=== PATIENT | female | born 1970 | race Caucasian/White ===

== ENCOUNTER 2024-03-22 08:30 | Emergency (ER) | payer OTHER, SELFPAY ==
[2024-03-22 08:53] VITALS: BP 139/79; PULSE 90; RESP 20; TEMP 36.8; O2SAT 98; BMI 26.5
[2024-03-22 09:09] LABS: UTC Strep Screen (Rapid) Negative (Negative)
--- NOTE | 2024-03-22 09:19 | ED_ITS ---
Discharge Plan Disposition Patient Disposition: Home, Self-Care Condition: Good Prescriptions Prescriptions: New fluticasone propionate [Flonase Allergy Relief] 50 mcg/actuation spray,suspension 2 spray intranasal DAILY Qty: 16 0RF Rx Instructions: administer into each nostril daily azithromycin [Zithromax Z-Perfecto] 250 mg tablet See Rx Instructions .ROUTE .COMPLEX 5 Days Qty: 6 0RF Rx Instructions: For 250 mg dose pack: take 500 mg today (day 1), then 250 mg for 4 days (days 2-5) methylprednisolone [Medrol (Perfecto)] 4 mg tablets,dose pack See Rx Instructions .Route .COMPLEX 6 Days Qty: 21 0RF Rx Instructions: taper pack; No Action dextroamphetamine-amphetamine 20 mg capsule,extended release 24hr 20 mg PO DAILY Patient Comments: TAKE ONE CAPSULE BY MOUTH EVERY MORNING escitalopram oxalate [Lexapro] 20 mg Tablet 20 mg PO DAILY Referrals Follow up/Referrals: Braxton Fam MD [Primary Care Provider] - See instructions Activity Restrictions/Add. Instructions Additional Instructions/Restrictions: *Monitor Temp, Over the counter Motrin or Tylenol as directed/as needed Tylenol every 4 hours and Motrin every 6 hours (as long as your family doctor has told you that you can take it) for fever or pain. and straight to ER if unable to lower temp less than 101.0 after medication given *Warm salt water gargles may help to soothe the throat *Throat Lozenges? *Warm fluids like tea with honey may help to soothe the throat? *Sleep elevated *Humidifier/Vaporizer *Flonase 2 sprays in each nostril daily but be aware that it may take 2-3 days before you notice improvement Take medication as prescribed Follow up IMMEDIATELY for new or worsening symptoms or no Noticeable improvement over the next 48-72 hours. 911 for difficulty breathing or swallowing Clinical Impressions Clinical Impression: Sinusitis Instructions Patient Instructions: DI for Sinusitis, Sinusitis Print Language Print Language: Mosotho Discharge ED Provider: Gely Stein [facility] [place] HPI General Stated complaint: sore throat Mode of Arrival: Ambulatory Source of Information: Patient Time Seen by Provider: 03/22/24 09:20 Description of Symptoms (Recalled from Triage Doc. by RN): SORE THROAT, NECK PAIN,HEADACHE X 3 WEEKS HEENT Symptoms (Recalled from RN notes): Yes (SORE THROAT, HEADACHE) Resp Symptoms (Recalled from RN notes): No Skin Symptoms (Recalled from RN notes): No MS Symptoms (Recalled from RN notes): No Functional Status (Recalled from RN notes): WNL History of Present Illness Provider Complaint: Patient states that for the last 3 weeks she has been having sinus congestion and pressure at times, headache on and off, sore throat, swollen lymph nodes and soreness in the sides of her neck States that someone looked at her throat and thought they may have seen blisters so she came in Related Data Home Medications ?Medication ?Instructions ?Recorded ?Confirmed dextroamphetamine-amphetamine ER 20 mg PO DAILY 03/22/24 03/22/24 20 mg 24hr capsule,extend release escitalopram oxalate 20 mg tablet 20 mg PO DAILY 03/22/24 03/22/24 (Lexapro) Previous Rx's ?Medication ?Instructions ?Recorded azithromycin 250 mg tablet See Rx Instructions PO .COMPLEX 5 03/22/24 (Zithromax Z-Perfecto) days #6 tabs fluticasone propionate 50 2 spray intranasal DAILY #16 grams 03/22/24 mcg/actuation nasal spray,suspension (Flonase Allergy Relief) methylprednisolone 4 mg tablets in See Rx Instructions .Route 03/22/24 a dose pack (Medrol (Perfecto)) .COMPLEX 6 days #21 tabs Allergies Allergy/AdvReac Type Severity Reaction Status Date / Time acetaminophen [From Percocet] Allergy Hives Verified 10/11/23 12:06 oxycodone [From Percocet] Allergy Hives Verified 10/11/23 12:06 Worker's Comp Is this a Worker's Comp case?: No [facility] Disclaimer: The information contained in this section may have been updated after the patient was seen, as this information can be updated by other users. Medical History (Updated 03/22/24 @ 09:28 by Gely Stein APRN) Depression Anxiety Surgical History (Updated 03/22/24 @ 08:56 by Rochelle Victor RN) Hx of cholecystectomy Social History Smoking Status: Smoker, status unknown alcohol intake: never current occupational status: employed Travel in the last 8 weeks: None ROS Obtained: Yes All systems reviewed & no additional complaints except as documented and Yes Systems reviewed as appropriate & no additional complaints except as documented Constitutional Constitutional: Reports system reviewed and no additional complaints, except as documented, Reports as per HPI and Reports headache(s) ENT Ears, Nose, Mouth, and Throat: Reports system reviewed and no additional complaints, except as documented, Reports as per HPI, Reports otalgia, Reports headache(s), Reports nasal congestion, Reports sinus pressure and Reports sore throat Cardiovascular Cardiovascular: Reports system reviewed and no additional complaints, except as documented and Reports as per HPI Respiratory Respiratory: Reports system reviewed and no additional complaints, except as documented and Reports as per HPI Gastrointestinal Gastrointestingal: Reports system reviewed and no additional complaints, except as documented and as per HPI Neurologic Neurologic: Reports headache(s) Physical Exam General General appearance: alert and in no apparent distress ENT ENT exam: Present mucous membranes moist Expanded ENT Exam TM/Canal exam: Bilateral TM: bulging Nose exam: Present sinus tenderness (tenderness with palpation maxillary sinuses) Throat exam: Present tonsillar erythema; Absent tonsillomegaly or tonsillar exudate Respiratory Respiratory exam: Present normal lung sounds bilaterally; Absent respiratory distress or wheezes Cardiovascular Cardiovascular exam: Present regular rate, normal rhythm and normal heart sounds Neurological Exam Neurological exam: Present alert, oriented X3 and normal gait Medical Decision Making Medical Records Screening: Per USPSTF and CDC recommendations, given the prevalence of disease in our region, it is our hospital?s policy to screen for HIV and viral Hepatitis for all patients aged 18 and over and those with ongoing risk factors. Vladimir Inquiry Pt receiving controlled substance: No Vladimir was queried for this patient: No Vital Signs: 03/22/24 08:53 Temperature 98.2 F Temperature Source Oral Pulse Rate [Left Brachial] 90 Respiratory Rate 20 Blood Pressure [Left Arm] 139/79 Blood Pressure Mean [Left Arm] 99 02 Sat by Pulse Oximetry 98 Lab Data Lab results reviewed: Yes I reviewed the patient's lab results. Lab Results 03/22/24 08:54: Strep Scn Rapid Clinic Negative Orders (Tests/Meds): ORDERS Category Date Time Status Strep Screen Confirmation Stat Micro 03/22/24 08:54 Received
[2024-03-22 10:06] VITALS: BP 139/79; PULSE 90; RESP 20; TEMP 36.8
== END 2024-03-22 10:06 | disposition home or self-care (01) ==
PROVIDERS: Emergency Provider Nurse Practitioner; PCP Family Medicine
DX: J01.90 Acute sinusitis, unspecified (principal); R51.9 Headache, unspecified; R07.0 Pain in throat
CPT/HCPCS: 87880; 99204; 99212; G0463

== ENCOUNTER 2024-05-29 14:31 | Outpatient (CLI) | payer OTHER, SELFPAY ==
--- NOTE | 2024-05-29 14:32 | US_ITS ---
PROCEDURE: US TRANSVAGINAL CLINICAL INDICATION: postmenopausal bleeding COMPARISON: No exams were available for comparison FINDINGS: Transvaginal sonographic images of the pelvis were obtained. UTERUS: 7.1cm x 4.6 cmx 3.6 cm anteverted with a combined endometrial thickness of 5.4mm. The myometrium has a heterogenous appearance. There is a heterogenous area within the cervix measuring 1.5 cm x 0.8 cm. LEFT OVARY: 2.1cmx1.0cmx1.0cm with a volume of 1.1ml. RIGHT OVARY: 2.5 cmx 1.4cmx1.3cm with a volume of 2.5ml. Both ovaries are seen and appear normal. Doppler flow to both ovaries are seen. There is no fluid in the cul-de-sac. IMPRESSION: 1. Anteverted uterus normal in shape and size. The endometrium measures 5.4 mm. Suggest endometrial sampling given the postmenopausal bleeding. 2. Within the cervix there is a hyperechoic area that measures 1.5 cm in size. 3. The myometrium of the uterus appears heterogenous. 4. Both ovaries are seen and appear atrophic. 5. No fluid in the cul-de-sac Dictated by: Thanh Bartholomew MD 05/29/2024 16:08 Thanh Bartholomew MD in [place] 05/29/2024 16:08
== END 2024-05-29 23:59 | disposition home or self-care (01) ==
LOC: RAD 14:32
PROVIDERS: PCP Family Medicine; Visit Provider Obstetrics & Gynecology
DX: N95.0 Postmenopausal bleeding (principal)
CPT/HCPCS: 76830

== ENCOUNTER 2024-06-06 08:01 | Emergency (ER) | payer OTHER, SELFPAY ==
[2024-06-06 08:15] VITALS: BP 146/78; PULSE 86; RESP 21; TEMP 36.6; O2SAT 100; BMI 25.4
--- NOTE | 2024-06-06 08:24 | EXP.UTC ---
Discharge Plan Disposition Patient Disposition: Home, Self-Care Condition: Good Prescriptions Prescriptions: New benzonatate 100 mg capsule 100 mg PO TID PRN (Reason: cough) Qty: 30 0RF methylprednisolone [Medrol (Perfecto)] 4 mg tablets,dose pack See Rx Instructions .Route .COMPLEX 6 Days Qty: 21 0RF Rx Instructions: taper pack; guaifenesin [Mucinex] 600 mg tablet extended release 12hr 600 - 1,200 mg PO BID PRN (Reason: cough) Qty: 20 0RF azithromycin [Zithromax Z-Perfecto] 250 mg tablet See Rx Instructions .ROUTE .COMPLEX 5 Days Qty: 6 0RF Rx Instructions: For 250 mg dose pack: take 500 mg today (day 1), then 250 mg for 4 days (days 2-5) fluconazole 150 mg tablet 150 mg PO Q3D 1 Days Qty: 1 0RF No Action dextroamphetamine-amphetamine 20 mg capsule,extended release 24hr 20 mg PO DAILY Patient Comments: TAKE ONE CAPSULE BY MOUTH EVERY MORNING escitalopram oxalate [Lexapro] 20 mg Tablet 20 mg PO DAILY fluticasone propionate [Flonase Allergy Relief] 50 mcg/actuation spray,suspension 2 spray intranasal DAILY Qty: 16 0RF Rx Instructions: administer into each nostril daily Referrals Follow up/Referrals: Kavon Miller MD [Primary Care Provider] - See instructions Activity Restrictions/Add. Instructions Additional Instructions/Restrictions: *Monitor Temp, Over the counter Motrin or Tylenol as directed/as needed Tylenol every 4 hours and Motrin every 6 hours (as long as your family doctor has told you that you can take it) for fever or pain. and straight to ER if unable to lower temp less than 101.0 after medication given *Warm salt water gargles may help to soothe the throat *Throat Lozenges? *Warm fluids like tea with honey may help to soothe the throat? *Sleep elevated *Humidifier/Vaporizer Start oral steriods tomorrow Follow up IMMEDIATELY for new or worsening symptoms or no Noticeable improvement over the next 48-72 hours. 911 for difficulty breathing or swallowing Clinical Impressions Clinical Impression: Sinusitis Qualifiers: Sinusitis location: unspecified location Chronicity: unspecified Qualified Code(s): J32.9 - Chronic sinusitis, unspecified Stand Alone Forms Stand Alone Forms: Work/School Release Instructions Patient Instructions: Sinusitis, DI for Sinusitis Print Language Print Language: Wallisian Discharge ED Provider: Gely Stein [facility] [place] H[place] General Stated complaint: head cold fever body aches Mode of Arrival: Ambulatory Source of Information: Patient Time Seen by Provider: 06/06/24 08:24 Description of Symptoms (Recalled from Triage Doc. by RN): ACHY, FEVER, URI? X 1 WEEK HEENT Symptoms (Recalled from RN notes): Yes Resp Symptoms (Recalled from RN notes): Yes Skin Symptoms (Recalled from RN notes): No MS Symptoms (Recalled from RN notes): No Functional Status (Recalled from RN notes): WNL History of Present Illness Provider Complaint: Patient states that she thought she had an URI for about a week but it has continued to get worse with sinus pain and pressure, headache, low grade fever, cough, sore throat and over all not feeling well Related Data Home Medications ?Medication ?Instructions ?Recorded ?Confirmed dextroamphetamine-amphetamine ER 20 mg PO DAILY 03/22/24 06/06/24 20 mg 24hr capsule,extend release escitalopram oxalate 20 mg tablet 20 mg PO DAILY 03/22/24 06/06/24 (Lexapro) Previous Rx's ?Medication ?Instructions ?Recorded fluticasone propionate 50 2 spray intranasal DAILY #16 grams 03/22/24 mcg/actuation nasal spray,suspension (Flonase Allergy Relief) azithromycin 250 mg tablet See Rx Instructions PO .COMPLEX 5 06/06/24 (Zithromax Z-Perfecto) days #6 tabs benzonatate 100 mg capsule 100 mg PO TID PRN cough #30 caps 06/06/24 fluconazole 150 mg tablet 150 mg PO Q3D 1 day #1 tab 06/06/24 guaifenesin 600 mg tablet, 600 - 1,200 mg (1 - 2 x 600 mg) PO 06/06/24 extended release 12 hr (Mucinex) BID PRN cough #20 tabs methylprednisolone 4 mg tablets in See Rx Instructions .Route 06/06/24 a dose pack (Medrol (Perfecto)) .COMPLEX 6 days #21 tabs Allergies Allergy/AdvReac Type Severity Reaction Status Date / Time Iodinated Contrast Media Allergy Severe Hives Verified 05/26/24 10:52 acetaminophen (From Percocet) Allergy Hives Verified 05/26/24 10:52 oxycodone (From Percocet) Allergy Hives Verified 05/26/24 10:52 Worker's Comp Is this a Worker's Comp case?: No [facility] Disclaimer: The information contained in this section may have been updated after the patient was seen, as this information can be updated by other users. Medical History (Updated 06/06/24 @ 08:42 by Gely Stein APRN) Depression Anxiety Surgical History (Updated 05/26/24 @ 10:53 by MARRY Ferris) [place] teeth extracted Hx of cholecystectomy Family History Father Non-Hodgkin lymphoma Other Hypertension Social History (Updated 05/26/24 @ 12:24 by Alice Sher DO) Smoking Status: Current every day smoker alcohol intake: never current occupational status: employed Travel in the last 8 weeks: None ROS Obtained: Yes All systems reviewed & no additional complaints except as documented and Yes Systems reviewed as appropriate & no additional complaints except as documented Constitutional Constitutional: Reports system reviewed and no additional complaints, except as documented, Reports as per HPI, Reports body ache, Reports chills, Reports fever(s) and Reports headache(s) ENT Ears, Nose, Mouth, and Throat: Reports system reviewed and no additional complaints, except as documented, Reports as per HPI, Reports otalgia, Reports headache(s), Reports sinus pain, Reports sinus pressure and Reports sore throat Cardiovascular Cardiovascular: Reports system reviewed and no additional complaints, except as documented and Reports as per HPI Respiratory Respiratory: Reports system reviewed and no additional complaints, except as documented, Reports as per HPI and Reports cough Gastrointestinal Gastrointestingal: Reports system reviewed and no additional complaints, except as documented and as per HPI Neurologic Neurologic: Reports headache(s) Physical Exam General General appearance: alert and in no apparent distress ENT ENT exam: Present mucous membranes moist Expanded ENT Exam TM/Canal exam: Right TM: erythema and Bilateral TM: bulging Nose exam: Present sinus tenderness Throat exam: Present other (Pharyngeal erythema noted with pND) Respiratory Respiratory exam: Present normal lung sounds bilaterally; Absent respiratory distress or wheezes Cardiovascular Cardiovascular exam: Present regular rate, normal rhythm and normal heart sounds Neurological Exam Neurological exam: Present alert, oriented X3 and normal gait Medical Decision Making Medical Records Screening: Per USPSTF and CDC recommendations, given the prevalence of disease in our region, it is our hospital?s policy to screen for HIV and viral Hepatitis for all patients aged 18 and over and those with ongoing risk factors. Vladimir Inquiry Pt receiving controlled substance: No Vladimir was queried for this patient: No Vital Signs: 06/06/24 08:15 Temperature 97.8 F Temperature Source Oral Pulse Rate [Left Radial] 86 Respiratory Rate 21 Blood Pressure [Left Arm] 146/78 H Blood Pressure Mean [Left Arm] 100 02 Sat by Pulse Oximetry 100 Lab Data Lab results reviewed: Yes I reviewed the patient's lab results. Medical Decision Narrative: Patient states that she has take azithromycin in the past without complications or reactions
[2024-06-06 08:30] LABS: UTC Influenza A Antigen Negative (Negative); UTC Influenza B Antigen Negative (Negative)
[2024-06-06] MEDS: cefTRIAXone 1GM VIAL 1 GM IM (08:36)
[2024-06-06] MEDS: METHYLPREDNISOLONE SOD SUCC 125MG VIAL 125 MG IM (08:37)
[2024-06-06] MEDS: LIDOCAINE 1% 5ML PF VIAL IM (08:37)
[2024-06-06 09:02] VITALS: BP 146/78; PULSE 86; RESP 21; TEMP 36.6
== END 2024-06-06 09:02 | disposition home or self-care (01) ==
PROVIDERS: Emergency Provider Nurse Practitioner; PCP Family Medicine
DX: J32.9 Chronic sinusitis, unspecified (principal); R50.9 Fever, unspecified; M79.10 Myalgia, unspecified site; R51.9 Headache, unspecified; R05.9 Cough, unspecified; J02.9 Acute pharyngitis, unspecified
CPT/HCPCS: 87804; 96372; 99212; G0381; J0696; J2919

== ENCOUNTER 2024-07-19 09:51 | Outpatient (CLI) | payer OTHER, SELFPAY ==
[2024-07-19 10:00] VITALS: BMI 25.2
--- NOTE | 2024-07-19 10:12 | ECG_ITS ---
APPROVED REPORT Exam: Resting ECG HR:73 bpm ECG Measurements Heart Rate 73 AXES VT 145 P 32 QRSd 73 QRS 43 QT 372 T 31 QTc 398 Conclusion SINUS RHYTHM WITH OCCASIONAL ECTOPIC PREMATURE COMPLEXES BORDERLINE ECG UNCONFIRMED REPORT Electronically signed by : Alessandro Villalba MD 07/21/2024 09:19:29
[2024-07-19 10:33] LABS: Basophils % 0.4 % (0.1-2.0); Eosinophils # 0.1 K/mm3 (0.0-0.4); Eosinophils % 1.5 % (0.1-12.0); Hematocrit 39.8 % (37.0-47.0); Hemoglobin 13.4 g/dL (12.2-16.2); Lymphocytes # 2.9 K/mm3 (0.7-4.5); Lymphocytes % 30.4 % (10-50); Mean Corpuscular HGB Conc 33.7 g/dL (31.8-35.4); Mean Corpuscular Hemoglobin 30.9 pg (27.0-31.2); Mean Corpuscular Volume 91.7 fl (81-99); Mean Platelet Volume 10.9 fl (7.4-10.4); Monocytes # 0.4 K/mm3 (0.1-1.0); Monocytes % 3.9 % (1.7-9.3); Neutrophils # 6.1 K/mm3 (1.8-7.8); Neutrophils % 63.6 % (37.0-80.0); Platelet Count 284 K/mm3 (142-424); Red Blood Count 4.34 M/mm3 (4.20-5.40); Red Cell Distribution Width 12.1 % (11.5-17.5); White Blood Count 9.6 K/mm3 (4.8-10.8)
[2024-07-19 10:46] LABS: Chloride 108 mmol/L (98-107); Potassium 3.9 mmoL/L (3.5-5.1); Sodium 136 mmol/L (136-145)
[2024-07-19 10:49] LABS: Anion Gap 6.9 mEq/L (5-15); Blood Urea Nitrogen 9 mg/dl (7-17); Carbon Dioxide 25 mmol/L (22.0-30.0); Creatinine Clearance Estimated 71 mL/min (50-200); Estimated Glomerular Filt Rate 65 ml/min (>60); GFR (African American) 79 ML/MIN (>60)
[2024-07-19 10:50] LABS: Calcium 9.2 mg/dl (8.4-10.2); Glucose 104 mg/dl (74-100)
== END 2024-07-19 23:59 | disposition home or self-care (01) ==
LOC: PREOP 09:52
PROVIDERS: Nurse Anesthetist, Certified Registered; PCP Family Medicine; Visit Provider Obstetrics & Gynecology
DX: Z01.810 Encounter for preprocedural cardiovascular examination (principal); I49.49 Other premature depolarization; R94.31 Abnormal electrocardiogram [ECG] [EKG]
CPT/HCPCS: 80048; 85025; 93005

== ENCOUNTER 2024-07-21 07:56 | Day surgery (SDC) | payer OTHER, SELFPAY ==
[2024-07-19 10:20] VITALS: BMI 25.2
[2024-07-21] VITALS (10 sets, daily range): BP systolic 117–153; BP diastolic 53–98; PULSE 58–74; RESP 16–18; TEMP 36.5–36.6; O2SAT 96–99
[2024-07-21] MEDS: LACTATED RINGERS 1000ML 1,000 ML 25 ML IV (08:09)
--- NOTE | 2024-07-21 08:57 | P.PNANES_ITS ---
[facility] Disclaimer: The information contained in this section may have been updated after the patient was seen, as this information can be updated by other users. Medical History Cervical polyp Thickened endometrium Postmenopausal bleeding Depression Anxiety Surgical History [place] teeth extracted Hx of cholecystectomy Family History Father Non-Hodgkin lymphoma Other Hypertension Social History Smoking Status: Current every day smoker alcohol intake: never substance use type: denies use current occupational status: employed Travel in the last 8 weeks: None [facility] Anesthesia Checklist Patient Identification Patient Identification: Arm Band Structural Data Admitted From: Home Planned Operative Procedure/s: Hysteroscopy, D&C Consent for Planned Operative Procedure(s) Verified: Yes Verified Documents: Surgical Consent and History and Physical NPO Status Verified Time NPO: 00:00 Additional verifications Anesthesia Reactions: No Hx Blood Transfusions: No Blood Transfusion Reaction: No Airway Assessment Mallampati Score:: Class II C-Spine Mobility Assessed: Yes TMJ Mobility Assessed: Yes Dentition: Good Dentition (Lower. Upper Edentulous) Neurological Assessment Level of Consciousness: Awake, Alert and Appropriate Anesthesia Plan Anesthesia Risk discussed: Yes Anesthesia Plan: Verified ASA Class: II Anesthesia Type: General
--- NOTE | 2024-07-21 09:16 | P.OP_ITS ---
Date of procedure: 07/21/24 Pre-op Diagnosis:: 1. Postmenopausal bleeding 2. Thickened endometrium 3. Cervical polyp Post-op Diagnosis:: 1. Postmenopausal bleeding 2. Thickened endometrium 3. Cervical polyp 4. Endometrial polyp Procedure performed:: Hysteroscopy, dilation, Myosure polypectomy and curettage Surgeon:: Alice Sher DO Transportation Maintenance Operator(s):: N/a ASSEMBLY LINE INSPECTOR:: Isidro López Anesthesia: GETA Estimated blood loss (mL): 5 Clinical Note:: Mrs Apple Ontiveros presents to [facility] for scheduled procedure. She complains of postmenopausal bleeding. LMP 07/2022. In April she started to have penn discharge and then started having some occasional light red bleeding. She reports recently she had red bleeding with passage of some chunks. No bleeding since. She denies pain. Last pap smear was 2 years ago and negative. No history of abnormal pap smear. She hasn't had intercourse in a few years. She admits to hot flashes and night sweats but is managing well without medication. On self exam she thought she felt something on her cervix. Small portion of what appears to be a polyp in cervical canal just slightly visible at external os visualized on exam in May. Attempt at polypectomy in the office was unsuccessful. Pelv ic ultrasound 05/29/24 demonstrated anteverted uterus normal in shape and size. The endometrium measures 5.4 mm. Suggest endometrial sampling given the postmenopausal bleeding. 2. Within the cervix there is a hyperechoic area that measures 1.5 cm in size. 3. The endometrium of the uterus appears heterogenous. 4. Both ovaries are seen and appear atrophic. 5. No fluid in the cul-de-sac. Operative findings:: 1. On bimanual exam, uterus normal size and shape, anteverted. No adnexal masses palpated 2. On hysteroscopic exam, large polyp occluding cervical canal. As polypectomy was performed the cervical polyp appeared to arise from endometrial cavity. Small second endometrial polyp noted. 2. Grossly normal appearing atrophic endometrium. Bilateral tubal ostia easily visualized Operative note:: Risks, benefits and alternatives were discussed with the patient. Risks include but are not limited to bleeding, infection, uterine perforation and VTE. Patient voiced understanding and agreed to proceed. She was wheeled back to the operating room and placed under general anesthesia without difficulty. She was placed in dorsal lithotomy position and prepped and draped in the normal sterile fashion. Straight catheter was used to drain the bladder. A bimanual exam was performed. A weighted Auvard was placed in the vaginal vault. Single tooth tenaculum was placed on anterior lip of the cervix. Uterus sounded to 8 Sequential David dilators were used to dilate the cervical os. Hysteroscope was inserted through the cervix without difficulty. Cervicalcanal and endometrial cavity was evaluated. See findings above. Pictures were taken. Myosure was inserted through the hysteroscope. Myosure polypectomy was performed per protocol. Pictures were taken. Hysteroscope with Myosure was removed. Medium size sharp curette was then inserted through the cervix and into the uterine cavity. Sharp curettage was performed in a 360 degree fashion. Scant tissue obtained. Instruments were removed from the vagina. Tenaculum site was hemostatic Patient was awaken from anesthesia without difficulty. She was transported to recovery room in stable condition. Patient will be discharged home when awake and ambulating. She was given postop instructions as well as instructions to follow-up in the office in 2 weeks. Condition: stable Disposition: same day Specimens:: 1. Cervical and endometrial polyp 2. Scant endometrial curettings Complications:: None
--- NOTE | 2024-07-21 09:21 | EXP.ANES.I ---
[facility] Anesthesia Record Part I Anesthesia Record I Intake, IV Amount: 800 Hydration: Adequate Estimated blood loss (mL): 5 Urine output (mL): 0 Blood Products used (#): none Blood Pressure: 142/88 SaO2: 98 Pulse Rate: 58 Airway Patency: Patent Respiratory Rate: 16 Temperature: 97.7 F Patient is:: Drowsy and Stable Stable to PACU at:: 09:15
--- NOTE | 2024-07-21 14:05 | P.PNANES_ITS ---
[facility] Anesthesia Record Part II Anesthesia Record Part II Discharge Time: 09:45 Destination: Surgical Day Care (OP Surgery) PACU nurse assessment reviewed?: Yes Patient Condition:: Good Anesthesia Complications:: None Swallowing reflex intact?: Yes Airway Patency: Patent Cyanosis?: No Blood Pressure: 131/87 SaO2: 99 Respiratory Rate: 16 Pulse Rate: 73 Temperature: 97.7 F Mental Status: Alert & Oriented Pain level:: 0 Nausea and/or vomitting:: None Intake, IV Amount: 0 Hydration: Adequate
== END 2024-07-21 10:16 | disposition home or self-care (01) ==
PROVIDERS: PCP Family Medicine; Visit Provider Obstetrics & Gynecology
PROC: 0UDB8ZZ Extraction of Endometrium, Via Natural or Artificial Opening Endoscopic (ICD-10-PCS; CPT 58558; principal; 2024-07-21 09:15)
DX: N93.9 Abnormal uterine and vaginal bleeding, unspecified (principal); R93.89 Abnormal findings on diagnostic imaging of other specified body structures; N84.1 Polyp of cervix uteri; N84.0 Polyp of corpus uteri
CPT/HCPCS: 58558; J1100; J2250; J2405; J3010; J7120